=== PATIENT | female | born 1955 ===

== ENCOUNTER 2023-10-08 05:50 | Day surgery (SDC) | payer MEDICARE, OTHER ==
[~2023-10-08 05:50] MED LIST: Sodium Chloride 0.9% 10 ML Syringe FLUSH PRN; Sodium Chloride 0.9% 10 ML Syringe FLUSH SCH
[2023-10-08] MEDS: Lactated Ringers 1,000 ML IV SCH (06:10)
[2023-10-08] MEDS ORDERED: Midazolam 1 MG/ML 2 ML SDV ONE (06:36)
[2023-10-08] MEDS ORDERED: fentaNYL 100 MCG/2 ML SDV ONE (06:36)
[2023-10-08] MEDS ORDERED: Ondansetron 4 MG/2 ML SDV ONE (06:37)
[2023-10-08] MEDS ORDERED: Propofol 200 MG/20 ML SDV ONE (06:37)
[2023-10-08] MEDS ORDERED: Ropivacaine 0.5% 5 MG/ML 30 ML SDV ONE (06:41)
[2023-10-08] MEDS ORDERED: ceFAZolin 2 GM Vial ONE (07:07)
[2023-10-08] MEDS ORDERED: Lidocaine 1% 5 ML VIAL ONE (07:15)
[2023-10-08] MEDS ORDERED: Ondansetron 4 MG/2 ML SDV IVPUSH PRN (07:52)
[2023-10-08] MEDS ORDERED: HYDROmorphone 0.5 MG/0.5 ML Syringe IVPUSH PRN (07:52)
[2023-10-08] MEDS ORDERED: fentaNYL 100 MCG/2 ML SDV IVPUSH PRN (07:52)
[2023-10-08] MEDS: Tranexamic Acid 1,000 MG/10 ML Vial ONE (08:08)
[2023-10-08] MEDS: Vancomycin 1 GM SDV ONE (08:08)
[2023-10-08] MEDS: Acetaminophen/Codeine 300-30 MG Tab PO PRN (10:15)
== END 2023-10-08 10:25 | disposition home or self-care (01) ==
LOC: JD.SDS 05:50
PROVIDERS: ATTEND Orthopaedic Surgery
DX: M75.101 Unspecified rotator cuff tear or rupture of right shoulder, not specified as traumatic (principal); M19.011 Primary osteoarthritis, right shoulder; J43.9 Emphysema, unspecified; I25.10 Atherosclerotic heart disease of native coronary artery without angina pectoris; E78.5 Hyperlipidemia, unspecified; F41.9 Anxiety disorder, unspecified; F17.290 Nicotine dependence, other tobacco product, uncomplicated; Z79.899 Other long term (current) drug therapy; Z88.8 Allergy status to other drugs, medicaments and biological substances
CPT/HCPCS: 01638; 64415; 76000; 76000-26; A9270-GY; C1713; C1769; C1776; J0690; J2250; J2405; J2704; J2795; J3010; J3370; J3490; J7030; J7120